=== PATIENT | female | born 1995 | race Caucasian/White ===

== ENCOUNTER 2022-07-21 15:30 | Inpatient (IN) | payer OTHER, SELFPAY ==
[2022-07-21 15:31] VITALS: BP 141/99; PULSE 65; RESP 15; TEMP 36.4; O2SAT 99; BMI 28.6
[2022-07-21 15:44] VITALS: BP 141/99; PULSE 65; RESP 15; TEMP 36.4; O2SAT 99
--- NOTE | 2022-07-21 15:49 | CT_ITS ---
INDICATION: Abdominal pain post cholecystectomy EXAMINATION: CT ABDOMEN AND PELVIS WITH CONTRAST - CT Abdomen And Pelvis W/ Contrast Injection TECHNIQUE: Helically acquired images were obtained of the abdomen and pelvis following IV contrast. A radiation dose optimization technique was used for this scan. IV Contrast dosage and agent: 100 cc [id number] Oral contrast: None. COMPARISON: None. FINDINGS: LOWER CHEST: Lung bases are clear. No cardiomegaly or pericardial effusion. LIVER: Homogeneous. No focal mass. GALLBLADDER AND BILIARY TREE: Gallbladder absent. Small amount of radiodense material in the gallbladder fossa. No intra- or extrahepatic biliary ductal dilation. PANCREAS: No focal cystic or solid mass. SPLEEN: Normal size without focal cystic or solid mass. ADRENAL GLANDS: No nodules. KIDNEYS AND URETERS: Normal renal size and position. No hydronephrosis. PERITONEUM: No ascites or free air. BOWEL: Normal appendix. No stomach or bowel distension. No focal inflammatory change. LYMPH NODES: No enlarged mesenteric or retroperitoneal lymph nodes. VESSELS: Aorta is non-dilated. URINARY BLADDER: Unremarkable. REPRODUCTIVE ORGANS: No pelvic masses. ABDOMINAL WALL: Ventral abdominal wall changes consistent with recent laparoscopy ports. No abnormal fluid collections. BONES: Unremarkable. CT/Abdomen/Pelvis W IV Cont ONLY IMPRESSION: Status post cholecystectomy with small amount of radiodense material in the gallbladder fossa, possible surgical material. Correlation with operative report is recommended. Calculi or hemorrhagic products could also have this appearance. Electronically Signed: Ayan Bermeo MD at 17:08 EST ,
--- NOTE | 2022-07-21 15:50 | ED.VIS.GI ---
HPI HPI - GI History of Present Illness Chief Complaint: Abd Pain Detail of Chief Complaint: Patient with recurrent right upper quadrant abdominal pain after cholecyste Informant: patient and spouse/S.O. Abdominal Pain/Flank Pain Onset: Weeks Context: Gradual Onset Timing: Intermittent Quality: Aching Location: RUQ Current Severity: Mild Maximum Severity: Mild Worsened by: Nothing Relieved by: Nothing Nausea/Vomiting/Emesis GI Symptom: Positive for Nausea; Negative for Vomiting Onset: Days Severity: Mild Diarrhea/Melena/Hematochezia GI Symptom: Negative for Diarrhea, Melena or Hematochezia Associated Symptoms Associated Symptoms: Negative for Dysuria, Frequency or Hematuria Narrative Narrative: 27-year-old female no seen past medical history. 2.5 weeks ago had laparoscopic cholecystectomy done at [facility] by Dr. Fajardo. States since the surgery she has had recurrent right upper quadrant pain. They did a HIDA scan and felt she might have a retained stone in the common bile duct. But then her pain got better so they thought the stone resolved but now she is having recurrent pain again. Associated nausea no vomiting. Her surgeon at that facility told her he could do nothing about a retained stone if that is what she had to come to our hospital. Prior similar symptoms: Yes Recent Illness/Hospitalization: No PFSH PFSH Medical History delivery delivered no medical history Home Medications hydrocodone-acetaminophen 5-325mg 5mg-325mg 1 tab PO Q6H PRN PRN Pain 07/21/22 [History Last Taken Unknown] Allergy/AdvReac Type Severity Reaction Status Date / Time No Known Allergies Allergy Verified 07/21/22 15:31 Surgical History History of cholecystectomy Social History Smoking Status: Never smoker ROS ROS ED ROS Narrative Right upper quadrant abdominal pain. Nausea. Review of Systems ROS Unobtainable: Denies due to encephalopathy Constitutional Constitutional ED: Denies chills or fever(s) ENT ENT ED: Denies ear pain Cardiovascular Cardiovascular: Denies chest pain Respiratory/Chest Respiratory/Chest: Denies cough Gastrointestinal Gastrointestinal: Reports abdominal pain and nausea; Denies constipation, diarrhea, melena or vomiting Genitourinary Genitourinary ED: Denies dysuria or hematuria Musculoskeletal Musculoskeletal: Denies arthralgias Integumentary Denies abscess Neurologic Neurologic: Denies headache(s) Psychiatric Psychiatric: Denies anxiety Endocrine Endocrinology: Denies polydipsia Hematologic/Lymphatic Hematologic/Lymphatic: Denies easy bleeding Allergic/Immunologic Allergic/Immunologic ED: Denies mouth swelling EXAM Physical Exam Narrative Exam Narrative: 18-year-old female no acute distress vital signs stable afebrile. H EENT exam unremarkable. Lungs clear equal symmetrical. Heart regular rate and rhythm rate about 65 no murmur. Abdomen soft nondistended normal bowel sounds no peritoneal signs. Mild right upper quadrant tenderness. No obstruction. Back nontender. Moving all 4 extremities. No edema. Neurologically she is awake and alert. Const Vital Signs: 07/21/22 15:31 07/21/22 15:44 Temperature 97.6 F L 97.6 F L Temperature Source Temporal Temporal Pulse Rate 65 65 Respiratory Rate 15 15 Blood Pressure 141/99 H 141/99 H Blood Pressure Mean 113 113 Pulse Ox 99 99 Oxygen Delivery Method Room Air Room Air Positive well nourished and well developed; Negative for obese, cachectic, contractures or unkempt General Appearance ED: well developed and NAD; Negative for unkempt, cachectic, contractures or pallor Nutritional Appearance: Negative for cachectic or obese HEENT Reports moist mucous membranes normocephalic and atraumatic; Negative for trauma or tenderness Eyes PERRL and EOMs intact bilaterally General Eye ED: Negative for pale conjunctiva or scleral icterus Neck no lymphadenopathy, supple and no JVD General: Negative for tenderness Carotids: Negative for other Lymph Lymphatic: Negative for other Resp normal respiratory effort and clear to auscultation bilaterally Effort and Inspection: Negative for respiratory distress Auscultation: Negative for rales, rhonchi or wheezes Cardio regular rate, regular rhythm, S1 normal heart sound, S2 normal heart sound and no murmurs Rate: Negative for bradycardia or tachycardic Rhythm: Negative for abnormal rhythm GI non-distended and no masses; Negative for non-tender GI Narrative: Mild right upper quadrant tenderness. Prior cholecystectomy incisions are dry and clean. Inspection: Negative for abdominal distention Auscultation: normoactive bowel sounds Palpation: soft, tender and rebound tenderness present; Negative for guarding, rigid, hepatomegaly, splenomegaly, hernia, mass or pulsatile mass Back/Spine no CVA tenderness General Back: Negative for CVA tenderness Cervical Spine: Negative for cervical spine tenderness Thoracic Spine / Upper Back: Negative for thoracic spinal tenderness Lumbar Spine / Lower Back: Negative for lumbar spinal tenderness Coccyx: Negative for other Extremity full ROM General Extremety ED: Negative for edema or tenderness General Extremity: Negative for edema Neuro CN's II-XII intact bilaterally and moves all extremities Sensorium / Orientation: alert, oriented to person, oriented to place and oriented to time; Negative for orientation impaired, confused, lethargic or stuporous Motor Exam: strength 5/5 throughout Psych mental status grossly normal and thought process normal Appearance: Negative for unkempt Attitude: No agitated Mood & Affect: Negative for depressed, anxious or tearful Skin General Skin Exam: Negative for jaundice or pallor Lesions: no lesions Rashes: no rashes Trauma: Negative for abrasion Nails: Negative for discolored MDM MDM MDM Narrative Medical decision making narrative: 27-year-old female with postcholecystectomy abdominal pain. Retained stone versus other etiologies. CAT scan and labs are pending. I will try to speak to her surgeon for [place] and get her HIDA scan results. She will be treated with morphine, Toradol and Zofran for pain. Spoke to the patient's general surgeon Dr. Nathan Fajardo in [place]. We were considering discharge. After my conversation with him she had recurrent pain and required more morphine. Therefore I spoke to GI on-call here. Patient will be admitted to the hospitalist. An MRCP. To determine if she has a retained stone or not if so then she may need an ERCP but that is to be determined. Ultrasound is also pending. Lab Data Attestation: I reviewed the patient's lab results. Lab results narrative: CBC White count of 6 H&H 12.38. Electrolytes unremarkable gap of 7 normal BUN and creatinine. Liver enzymes showed ALT 196 alk phos of 141. Lipase at 90. Labs: Laboratory Results - last 24 hr 07/21/22 07/21/22 15:46 15:46 WBC 6.0 RBC 4.57 Hgb 12.8 Hct 38.8 MCV 84.9 MCH 28.0 MCHC 33.0 RDW Std Deviation 42.9 RDW Coeff of Colt 14.0 Plt Count 346 MPV 9.0 Immature Gran % (Auto) 0.300 Neut % (Auto) 72.3 H Lymph % (Auto) 21.1 [place] % (Auto) 4.8 Eos % (Auto) 1.0 Baso % (Auto) 0.5 Absolute Neuts (auto) 4.3 Absolute Lymphs (auto) 1.26 Nucleated RBC % 0 Sodium 139 Potassium 3.5 Chloride 104 Carbon Dioxide 28.0 Anion Gap 7 BUN 8 Creatinine 0.59 Estim Creat Clear Calc 126.60 Est GFR (MDRD) Af Amer 154 Est GFR (MDRD) Non-Af 127 BUN/Creatinine Ratio 13.5 Glucose 90 Calcium 9.4 Total Bilirubin 0.80 AST 34 ALT 196 H Alkaline Phosphatase 141 H Total Protein 7.8 Albumin 4.1 Globulin 3.7 Albumin/Globulin Ratio 1.1 Lipase 90 Radiography Diagnostic Testing: Clinical Impression(s) from Imaging Studies Abdomen/Pelvis CT 07/21/22 15:49 IMPRESSION: Status post cholecystectomy with small amount of radiodense material in the gallbladder fossa, possible surgical material. Correlation with operative report is recommended. Calculi or hemorrhagic products could also have this appearance. Electronically Signed: Ayan Bermeo MD at 17:08 EST Reading Location ID and State: [facility] / [place] Tel , Service support , Discharge Plan Triage Chief Complaint: Abd Pain ED Provider: Jordon Donaldson Dx/Rx/DC Orders Clinical Impression: Abdominal pain, History of cholecystectomy Prescriptions: No Action hydrocodone-acetaminophen [[place]] 5-325 mg Tablet 1 tab PO Q6H PRN PRN (Reason: Pain) Primary Care Provider: Miguel Fajardo Referrals: Miguel Fajardo MD [Primary Care Provider] - Disposition Disposition: Acute Care Hospital [facility]
[2022-07-21] MEDS: Ketorolac 30 MG/ML Syringe IV (15:58)
[2022-07-21] MEDS: Morphine 4 MG/ML Syringe 6 MG IV (15:58)
[2022-07-21] MEDS: Ondansetron 4 MG/2 ML Vial IV (15:58)
[2022-07-21 16:01] LABS: Absolute Lymphocyte Count 1.26 X10^3/uL (0.83-4.51); Absolute Neutrophil Count 4.3 X10^3/uL (2.0-7.7); Basophil# 0.03 X10^3/uL; Basophil% 0.5 % (0-1); Eosinophil# 0.06 X10^3/uL; Hematocrit 38.8 % (37-47); Hemoglobin 12.8 g/dL (12.0-15.0); Lymphocyte # 1.26 X10^3/ul (0.83-4.51); Lymphocyte % 21.1 % (19-41); Mean Corpuscular Volume 84.9 fL (81-99); Monocyte# 0.29 X10^3/uL; Monocyte% 4.8 % (0-10); NRBC Flagged by Analyzer 0 % (0-5); Neutrophil # 4.32 X10^3/uL (2.7-7.7); Neutrophil % 72.3 % (47-70); Platelet Count 346 K/mm3 (150-450); RBC Distribution Width SD 42.9 fl (35.1-43.9); Red Blood Count 4.57 M/mm3 (4.2-5.4)
[2022-07-21 16:17] LABS: ALB/GLOB Ratio 1.1 RATIO (0.9-2.4); AST(SGOT) 34 U/L (15-37); Alanine Aminotransfer ALT/SGPT 196 U/L (13-56); Albumin, Serum 4.1 g/dL (3.2-5.0); Alkaline Phosphatase 141 U/L (45-117); Anion Gap 7 (5-15); BUN 8 mg/dL (7-18); BUN/Creat Ratio 13.5 RATIO (10-20); Calcium,Total 9.4 mg/dL (8.5-10.1); Chloride 104 mmol/L (98-107); Creatinine, Serum 0.59 mg/dL (0.55-1.02); EST Glomerular Filtration Rate 127 mL/min (>60); Est Glom Filt Rate - Afr Amer 154 mL/min (>60); Globulin 3.7 g/dL (2.2-4.2); Glucose 90 mg/dL (74-106); Lipase 90 U/L (73-393); Potassium 3.5 mmol/L (3.5-5.1); Protein, Total 7.8 g/dL (6.4-8.2); Sodium Level 139 mmol/L (136-145)
--- NOTE | 2022-07-21 18:39 | US_ITS ---
PROCEDURE: ABDOMINAL ULTRASOUND, RIGHT UPPER QUADRANT COMPARISONS: CT abdomen and pelvis earlier same date.. CLINICAL INDICATION: Pain status post cholecystectomy TECHNIQUE: Real-time arroyo-scale abdominal ultrasound. Limited color Doppler evaluation is performed. FINDINGS: Liver: Normal in size and echogenicity. Appropriate hepatopetal flow is present in the main portal vein. Gallbladder: Gallbladder surgically absent. Echogenic foci in the gallbladder fossae and measure approximately 5 mm with scattered shadowing noted. Sonographic Bolanos''s sign reported positive. Biliary Tree: Nondilated. Common bile duct measures 6 mm. Pancreas: Limited evaluation of the head and body is unremarkable. Right kidney: Normal in size and echogenicity. No hydronephrosis or stones. The right kidney measures 11.3 cm in long axis. No free fluid. US/Gallbladder IMPRESSION: Shadowing echogenic foci in the gallbladder fossa, calculi versus surgical material. Correlate with operative report for surgical material utilized. No biliary obstruction. Electronically Signed: Ayan Bermeo MD at 19:53 EST ,
[2022-07-21] MEDS: Morphine 4 MG/ML Syringe IV (18:49)
[2022-07-21 19:31] VITALS: BP 138/78; PULSE 73; RESP 16; TEMP 36.6; O2SAT 98
--- NOTE | 2022-07-21 19:56 | HP.PCM.HOS_ITS ---
HPI - General General Date of Admission: 07/21/22 Date of Service: 07/21/22 Chief Complaint: Right upper quadrant pain HPI Narrative YOHANA MORALES, is a 27 F with a past history of laparoscopic cholecystectomy 2.5 weeks ago at [place] by Dr. Morales who presented to [facility] 07/21/2022 with recurrent right upper quadrant pain. She been having right upper quadrant pain which is why cholecystectomy was performed, she r eports that inflammation was found during her cholecystectomy and she is on antibiotics for 4 days. Since then she has had pain that waxes and wanes. At 1 point she did have a HIDA scan which questioned retained stone but she clinically improved significantly so no further imaging or intervention was performed. Since Monday however she has had worsened right upper quadrant pain with some nausea and poor p.o. intake. Denies any fever, has had slight constipation. No emesis. Her surgeon recommended she come to the ER for further evaluation. In the ED white blood cell count within normal limits, slight elevation of ALT and ALP. CT abdomen/pelvis shows small amount of radiodense material in the gallbladder fossa and is nonspecific. Right upper quadrant ultrasound also nonspecific but did not demonstrate overt obstruction. GI contacted by ED physician who recommended admission and MRCP. Hospitalist contacted for admission. On evaluation she reports pain is somewhat improved with pain medication but continues to have the sharp frequent right upper quadrant pain and mild nausea with no vomiting. Denies any other physical complaints. [facility] Medical History delivery delivered Home Medications hydrocodone-acetaminophen 5-325mg 5mg-325mg 1 tab PO Q6H PRN PRN Pain 07/21/22 [History Last Taken Unknown] Allergy/AdvReac Type Severity Reaction Status Date / Time No Known Allergies Allergy Verified 07/21/22 15:31 Surgical History History of cholecystectomy Social History Smoking Status: Never smoker ROS Constitutional Constitutional: Denies change in weight, chills or fever(s) Eyes Eyes: Denies change in vision ENT HEENT: Denies headache(s), nasal congestion or sore throat Cardiovascular Cardiovascular: Denies chest pain or palpitations Respiratory/Chest Respiratory/Chest: Denies cough or productive cough Gastrointestinal Gastrointestinal: Reports other Details: Mild to moderate right upper quadrant abdominal pain that is often sharp in nature, slight constipation Genitourinary Genitourinary: Reports other Details: denies changes in urination Musculoskeletal Musculoskeletal: Denies joint pain Neurologic Neurologic: Denies dizziness, focal weakness, headache(s), numbness or tingling Psychiatric Psychiatric: Denies anxiety Hematologic/Lymphatic Hematologic/Lymphatic: Denies easy bleeding Allergic/Immunologic Allergic/Immunologic: Reports other Details: denies rashes Vital Signs Vital Signs Vital Signs: 07/21/22 15:31 07/21/22 15:44 Temperature 97.6 F L 97.6 F L Temperature Source Temporal Temporal Pulse Rate 65 65 Respiratory Rate 15 15 Blood Pressure 141/99 H 141/99 H Blood Pressure Mean 113 113 Pulse Ox 99 99 Oxygen Delivery Method Room Air Room Air Weight Weight: 78.018 kg Body Mass Index (BMI) 28.6 Physical Exam Const alert and no apparent distress Constitutional Narrative: Oriented HEENT normocephalic and head/scalp atraumatic Eyes Eyes Narrative: EOM grossly intact, anicteric Neck supple Resp normal respiratory effort and clear to auscultation bilaterally Cardio regular rate and regular rhythm GI soft to palpation and non-distended GI Narrative: Very mild tender to palpation in right upper quadrant, no rebound, no guarding, no rigidity Extremity Extremity Narrative: No edema appreciated Neuro moves all extremities Neuro Narrative: No overt focal deficits appreciated Psych Psych Narrative: Cooperative Results Lab / Micro Data Result Diagrams: 07/21/22 15:46 07/21/22 15:46 Labs: Laboratory Results - last 24 hr 07/21/22 15:46: WBC 6.0, RBC 4.57, Hgb 12.8, Hct 38.8, MCV 84.9, MCH 28.0, MCHC 33.0, RDW Std Deviation 42.9, RDW Coeff of Colt 14.0, Plt Count 346, MPV 9.0, Immature Gran % (Auto) 0.300, Neut % (Auto) 72.3 H, Lymph % (Auto) 21.1, [place] % (Auto) 4.8, Eos % (Auto) 1.0, Baso % (Auto) 0.5, Absolute Neuts (auto) 4.3, Absolute Lymphs (auto) 1.26, Nucleated RBC % 0 07/21/22 15:46: Sodium 139, Potassium 3.5, Chloride 104, Carbon Dioxide 28.0, Anion Gap 7, BUN 8, Creatinine 0.59, Estim Creat Clear Calc 126.60, Est GFR (MDRD) Af Amer 154, Est GFR (MDRD) Non-Af 127, BUN/Creatinine Ratio 13.5, Glucose 90, Calcium 9.4, Total Bilirubin 0.80, AST 34, ALT 196 H, Alkaline Phosphatase 141 H, Total Protein 7.8, Albumin 4.1, Globulin 3.7, Albumin/Globulin Ratio 1.1, Lipase 90 Radiology Impression Abdomen/Pelvis CT 07/21/22 15:49 IMPRESSION: Status post cholecystectomy with small amount of radiodense material in the gallbladder fossa, possible surgical material. Correlation with operative report is recommended. Calculi or hemorrhagic products could also have this appearance. Electronically Signed: Ayan Bermeo MD at 17:08 EST Reading Location ID and State: [facility] / [place] Tel , Service support , Gallbladder Ultrasound 07/21/22 18:39 IMPRESSION: Shadowing echogenic foci in the gallbladder fossa, calculi versus surgical material. Correlate with operative report for surgical material utilized. No biliary obstruction. Electronically Signed: Ayan Bermeo MD at 19:53 EST Reading Location ID and State: [facility] / [place] Tel , Service support , Assessment & Plan Assessment/Plan (1) Abdominal pain: PLAN: Plan #Right upper quadrant pain Concern for retained stone CT and ultrasound nonspecific, MRCP ordered GI consulted Pain control, Zofran, gentle hydration overnight given poor p.o. intake over the past couple weeks No signs or symptoms of infection so we will not begin antibiotics at this time #Elevated ALT and alk phos MRCP ordered Trend CMP #DVT ppx: Low risk, ambulatory Patience Sinha MD Charges/Coding Visit Charges OBSV E&M: 34686 Initial observation care L2
[2022-07-21 20:20] VITALS: BMI 29.0
[2022-07-21 20:45] VITALS: BP 115/69; PULSE 61; RESP 16; TEMP 36.7; O2SAT 99
[2022-07-21] MEDS: oxyCODONE 5 MG Tablet PO (20:51)
[2022-07-21] MEDS: 0.9% Normal Saline 1,000 ML 75 ML IV (20:53)
[2022-07-22] MEDS: oxyCODONE 5 MG Tablet PO ×4 (03:53→23:12)
[2022-07-22 06:06] LABS: Absolute Lymphocyte Count 1.34 X10^3/uL (0.83-4.51); Absolute Neutrophil Count 2.4 X10^3/uL (2.0-7.7); Basophil# 0.02 X10^3/uL; Basophil% 0.5 % (0-1); Eosinophil# 0.11 X10^3/uL; Eosinophils% 2.6 % (0-5); Hemoglobin 11.9 g/dL (12.0-15.0); Lymphocyte # 1.34 X10^3/ul (0.83-4.51); Lymphocyte % 32.2 % (19-41); Mean Corp Hgb Conc 32.2 g/dL (32-36); Mean Corpuscular Hgb 28.3 pg (27.0-32.0); Mean Corpuscular Volume 87.9 fL (81-99); Mean Platelet Vol. 9.2 fl (6.2-12.0); Monocyte# 0.27 X10^3/uL; Monocyte% 6.5 % (0-10); NRBC Flagged by Analyzer 0 % (0-5); Neutrophil % 57.7 % (47-70); Platelet Count 288 K/mm3 (150-450); RBC Distribution Width SD 44.3 fl (35.1-43.9); Red Blood Count 4.21 M/mm3 (4.2-5.4); White Blood Count 4.2 K/mm3 (4.4-11.0)
[2022-07-22 06:39] LABS: AST(SGOT) 26 U/L (15-37); Alanine Aminotransfer ALT/SGPT 153 U/L (13-56); Albumin, Serum 3.3 g/dL (3.2-5.0); Alkaline Phosphatase 120 U/L (45-117); Anion Gap 7 (5-15); BUN 10 mg/dL (7-18); BUN/Creat Ratio 19.8 RATIO (10-20); Calcium,Total 8.7 mg/dL (8.5-10.1); Chloride 108 mmol/L (98-107); Creatinine, Serum 0.51 mg/dL (0.55-1.02); EST Glomerular Filtration Rate 153 mL/min (>60); Est Glom Filt Rate - Afr Amer 185 mL/min (>60); Estimated Creatinine Clearance 146.46 ml/min; Globulin 3.4 g/dL (2.2-4.2); Glucose 62 mg/dL (74-106); Potassium 3.5 mmol/L (3.5-5.1); Protein, Total 6.7 g/dL (6.4-8.2); Sodium Level 139 mmol/L (136-145)
--- NOTE | 2022-07-22 07:06 | PCM.PN.HOSP ---
Subjective Subjective Follow-up for right upper quadrant abdominal pain after cholecystectomy. Objective Data Objective Data Vital Signs: Vital Signs Temp Pulse Resp BP Pulse Ox O2 Del Method 98.1 F 61 16 115/69 99 Room Air 07/21/22 20:45 07/21/22 20:45 07/21/22 20:45 07/21/22 20:45 07/21/22 20:45 07/21/22 20:45 Oxygen Delivery Method Room Air Weight: 174 lb 9.698 oz Body Mass Index (BMI) 29.0 Lab / Micro Data Result Diagrams: 07/22/22 05:11 07/22/22 05:11 Labs: Laboratory Results - last 24 hr 07/21/22 15:46: WBC 6.0, RBC 4.57, Hgb 12.8, Hct 38.8, MCV 84.9, MCH 28.0, MCHC 33.0, RDW Std Deviation 42.9, RDW Coeff of Colt 14.0, Plt Count 346, MPV 9.0, Immature Gran % (Auto) 0.300, Neut % (Auto) 72.3 H, Lymph % (Auto) 21.1, [place] % (Auto) 4.8, Eos % (Auto) 1.0, Baso % (Auto) 0.5, Absolute Neuts (auto) 4.3, Absolute Lymphs (auto) 1.26, Nucleated RBC % 0 07/21/22 15:46: Sodium 139, Potassium 3.5, Chloride 104, Carbon Dioxide 28.0, Anion Gap 7, BUN 8, Creatinine 0.59, Estim Creat Clear Calc 126.60, Est GFR (MDRD) Af Amer 154, Est GFR (MDRD) Non-Af 127, BUN/Creatinine Ratio 13.5, Glucose 90, Calcium 9.4, Total Bilirubin 0.80, AST 34, ALT 196 H, Alkaline Phosphatase 141 H, Total Protein 7.8, Albumin 4.1, Globulin 3.7, Albumin/Globulin Ratio 1.1, Lipase 90 07/22/22 05:11: WBC 4.2 L, RBC 4.21, Hgb 11.9 L, Hct 37.0, MCV 87.9, MCH 28.3, MCHC 32.2, RDW Std Deviation 44.3 H, RDW Coeff of Colt 14.0, Plt Count 288, MPV 9.2, Immature Gran % (Auto) 0.500, Neut % (Auto) 57.7, Lymph % (Auto) 32.2, [place] % (Auto) 6.5, Eos % (Auto) 2.6, Baso % (Auto) 0.5, Absolute Neuts (auto) 2.4, Absolute Lymphs (auto) 1.34, Nucleated RBC % 0 07/22/22 05:11: Sodium 139, Potassium 3.5, Chloride 108 H, Carbon Dioxide 24.0, Anion Gap 7, BUN 10, Creatinine 0.51 L, Estim Creat Clear Calc 146.46, Est GFR (MDRD) Af Amer 185, Est GFR (MDRD) Non-Af 153, BUN/Creatinine Ratio 19.8, Glucose 62 L, Calcium 8.7, Total Bilirubin 0.80, AST 26, ALT 153 H, Alkaline Phosphatase 120 H, Total Protein 6.7, Albumin 3.3, Globulin 3.4, Albumin/Globulin Ratio 1.0 Radiography Diagnostic Testing: Radiology Impression Abdomen/Pelvis CT 07/21/22 15:49 IMPRESSION: Status post cholecystectomy with small amount of radiodense material in the gallbladder fossa, possible surgical material. Correlation with operative report is recommended. Calculi or hemorrhagic products could also have this appearance. Electronically Signed: Ayan Bermeo MD at 17:08 EST , Gallbladder Ultrasound 07/21/22 18:39 IMPRESSION: Shadowing echogenic foci in the gallbladder fossa, calculi versus surgical material. Correlate with operative report for surgical material utilized. No biliary obstruction. Electronically Signed: Ayan Bermeo MD at 19:53 EST , Physical Exam Narrative Seen and examined. Patient is still has intermittent right upper quadrant pain. She is 3 months . Physical exam General: Alert, Oriented x3, Cooperative HEENT: Atraumatic, PERRLA, EOMI, Normocephalic Oral: No Gingival or Mucosal Lesions/ Ulcerations Neck: Supple, No JVD, Negative Carotid Bruits Lungs: Air entry equal in bilateral lung bases. No crepitation/rhonchi Cardiovascular: Regular rate, Regular Rhythm, Normal S1, Normal S2, No murmurs Abdomen: Mild tenderness over right subcostal margin. No guarding/rigidity. No mass palpable. Nondistended. Bowel sounds present. : No renal angle tenderness. No suprapubic tenderness. Extremities: No edema, Capillary Refill Less than 3 Seconds Skin: No rashes, No breakdown Musculoskeletal: No Tenderness to Palpation of Joints or Extremities Neurological: Cranial nerves II-XII grossly intact, DTR 2+/4 and Symmetrical, Neuro grossly intact Psych/Mental Status: Normal Affect, Appropriate. Assessment & Plan Assessment/Plan (1) Abdominal pain: PLAN: Plan This is a 27-year-old female was admitted with recurrent right upper quadrant abdominal pain for about 2 and half weeks after she had laparoscopic cholecystectomy at [facility] by Dr. Fajardo. She had HIDA scan #Right upper quadrant pain: Patient had HIDA scan in [facility] and felt it might be a retained stone in CBD. But after that pain resolved for transient period, therefore was thought to have passed the stone. The pain came back associated with nausea but no vomiting.The patient had CT abdomen and right upper quadrant sonogram which raised the suspicion of calculi or hemorrhagic product. MRCP was ordered. Patient on pain control, antiemetic. On clinical lab and radiological assessment patient did not seem to be infected therefore antibiotic was not started yet.Patient does not have leukocytosis. Liver chemistry shows elevated ALT and alkaline phosphatase but normal AST. TB normal. GI consult reviewed. #DVT ppx: Low risk, ambulatory Charges/Coding Visit Charges Inpatient E&M: 55977 Subs Hosp L2
--- NOTE | 2022-07-22 08:14 | CON.PCM.GI_ITS ---
HPI Consult Data Date of Consult: 07/22/22 HPI Narrative Reason for Consultation: Right upper quadrant abdominal pain HPI Narrative: YOHANA MORALES, is a 27 F who presents in the right upper quadrant abdominal pain. She is 3 months . She has a past history of laparoscopic cholecystectomy 2.5 weeks ago at [place].? She been having right upper quadrant pain which is why cholecystectomy was performed. She reports that inflammation was found during her cholecystectomy and she is on antibiotics for 4 days.? Since then she has had pain that waxes and wanes.? At 1 point she did have a HIDA scan which questioned retained stone but she clinically improved significantly so no further imaging or intervention was performed.? Since Monday however she has had worsened right upper quadrant pain with some nausea and poor p.o. intake.? Denies any fever, has had slight constipation.? No emesis.? Her surgeon recommended she come to the ER for further evaluation.? In the ED white blood cell count within normal limits, slight elevation of ALT and ALP.? CT abdomen/pelvis shows small amount of radiodense material in the gallbladder fossa and is nonspecific.? Right upper quadrant ultrasound also nonspecific but did not demonstrate overt obstruction.? On evaluation she reports pain is somewhat improved with pain medication but continues to have the sharp frequent right upper quadrant pain and mild nausea with no vomiting.? Currently she rates her pain a 9 out of 10 without pain medicine and a 5 out of 10 with pain medicine. She is awaiting MRCP. [facility] Medical History delivery delivered Home Medications hydrocodone-acetaminophen 5-325mg 5mg-325mg 1 tab PO Q6H PRN PRN Pain 07/21/22 [History Last Taken Unknown] Allergy/AdvReac Type Severity Reaction Status Date / Time No Known Allergies Allergy Verified 07/21/22 15:31 Surgical History History of cholecystectomy Social History Smoking Status: Never smoker ROS Constitutional Constitutional: Denies change in weight, chills or fever(s) Eyes Eyes: Denies change in vision ENT HEENT: Denies headache(s), nasal congestion or sore throat Cardiovascular Cardiovascular: Denies chest pain or palpitations Respiratory/Chest Respiratory/Chest: Denies cough or productive cough Gastrointestinal Gastrointestinal: Reports other Details: Mild to moderate right upper quadrant abdominal pain that is often sharp in nature, slight constipation Genitourinary Genitourinary: Reports other Details: denies changes in urination Musculoskeletal Musculoskeletal: Denies joint pain Neurologic Neurologic: Denies dizziness, focal weakness, headache(s), numbness or tingling Psychiatric Psychiatric: Denies anxiety Hematologic/Lymphatic Hematologic/Lymphatic: Denies easy bleeding Allergic/Immunologic Allergic/Immunologic: Reports other Details: denies rashes Physical Exam Const alert and no apparent distress Constitutional Narrative: Oriented HEENT normocephalic and head/scalp atraumatic Eyes Eyes Narrative: EOM grossly intact, anicteric Neck supple Resp normal respiratory effort and clear to auscultation bilaterally Cardio regular rate and regular rhythm GI soft to palpation and non-distended GI Narrative: Very mild tender to palpation in right upper quadrant, no rebound, no guarding, no rigidity Extremity Extremity Narrative: No edema appreciated Neuro moves all extremities Neuro Narrative: No overt focal deficits appreciated Psych Psych Narrative: Cooperative Lab / Micro Data Result Diagrams: 07/22/22 05:11 07/22/22 05:11 Labs: Laboratory Results - last 24 hr 07/21/22 15:46: WBC 6.0, RBC 4.57, Hgb 12.8, Hct 38.8, MCV 84.9, MCH 28.0, MCHC 33.0, RDW Std Deviation 42.9, RDW Coeff of Colt 14.0, Plt Count 346, MPV 9.0, Immature Gran % (Auto) 0.300, Neut % (Auto) 72.3 H, Lymph % (Auto) 21.1, Greenlee % (Auto) 4.8, Eos % (Auto) 1.0, Baso % (Auto) 0.5, Absolute Neuts (auto) 4.3, Abso lute Lymphs (auto) 1.26, Nucleated RBC % 0 07/21/22 15:46: Sodium 139, Potassium 3.5, Chloride 104, Carbon Dioxide 28.0, Anion Gap 7, BUN 8, Creatinine 0.59, Estim Creat Clear Calc 126.60, Est GFR (MDRD) Af Amer 154, Est GFR (MDRD) Non-Af 127, BUN/Creatinine Ratio 13.5, Glucos e 90, Calcium 9.4, Total Bilirubin 0.80, AST 34, ALT 196 H, Alkaline Phosphatase 141 H, Total Protein 7.8, Albumin 4.1, Globulin 3.7, Albumin/Globulin Ratio 1.1, Lipase 90 07/22/22 05:11: WBC 4.2 L, RBC 4.21, Hgb 11.9 L, Hct 37.0, MCV 87.9, MCH 28.3, MCHC 32.2, RDW Std Deviation 44.3 H, RDW Coeff of Colt 14.0, Plt Count 288, MPV 9.2, Immature Gran % (Auto) 0.500, Neut % (Auto) 57.7, Lymph % (Auto) 32.2, Greenlee % (Auto) 6.5, Eos % (Auto) 2.6, Baso % (Auto) 0.5, Absolute Neuts (auto) 2.4, Absolute Lymphs (auto) 1.34, Nucleated RBC % 0 07/22/22 05:11: Sodium 139, Potassium 3.5, Chloride 108 H, Carbon Dioxide 24.0, Anion Gap 7, BUN 10, Creatinine 0.51 L, Estim Creat Clear Calc 146.46, Est GFR (MDRD) Af Amer 185, Est GFR (MDRD) Non-Af 153, BUN/Creatinine Ratio 19.8, Glucose 62 L, Calcium 8.7, Total Bilirubin 0.80, AST 26, ALT 153 H, Alkaline Phosphatase 120 H, Total Protein 6.7, Albumin 3.3, Globulin 3.4, Albumin/Globu ren Ratio 1.0 Radiology Impression Abdomen/Pelvis CT 07/21/22 15:49 IMPRESSION: Status post cholecystectomy with small amount of radiodense material in the gallbladder fossa, possible surgical material. Correlation with operative report is recommended. Calculi or hemorrhagic products could also have this appearance. Electronically Signed: Ayan Bermeo MD at 17:08 EST Reading Location ID and State: [facility] / [place] Tel , Service support , Gallbladder Ultrasound 07/21/22 18:39 IMPRESSION: Shadowing echogenic foci in the gallbladder fossa, calculi versus surgical material. Correlate with operative report for surgical material utilized. No biliary obstruction. Electronically Signed: Ayan Bermeo MD at 19:53 EST , Assessment & Plan Assessment/Plan (1) Abdominal pain: PLAN: Her LFTs are decreasing despite her having abdominal pain that was similar to her prior to getting her gallbladder out. Outside HIDA scan as per the patient, displayed no technetium going into the small bowel at an extended period of time of 2 hours. Her imaging at our institution does not show any signs of obstruction but it does show material in the gallbladder fossa. We will await the MRCP to see if there is any signs of bile leak, retained stone or any other pathology that may or may not be associated with recent cholecystectomy. Charges/Coding Visit Charges Inpatient E&M: 04436 Init Hosp L3
[2022-07-22 08:37] VITALS: BP 116/61; PULSE 76; RESP 16; TEMP 36.9; O2SAT 98
[2022-07-22] MEDS: Lactated Ringers 1,000 ML 100 ML IV ×2 (09:45→20:11)
[2022-07-22] MEDS: LORazepam 1 MG Tablet PO (09:45)
--- NOTE | 2022-07-22 09:52 | CASEMGMT ---
ADRIENNE PAYTON Assessment: Face to Face with pt for initial transition planning/care coordination assessment. RN FITO introduced self and role at [facility], pt voices understanding and consents to assessment. Pt is A/O x4 and answers all questions appropriately at this time. Pt sitting up in bed with at bedside. Care providers, pharmacy, and demographics verified/updated. Admitting Dx: RUQ pain PCP:Miguel Fajarod Specialists:Nathan Fajardo, OR; Anabela Fajardo, ENGRAVER [employer]PRENTICE DECORATIVE Preferred Pharmacy: [facility] Retail Insurance: bSafe Prescription Benefit: no LNOK: Kaushal Fajardo, Living Arrangements: Pt lives with and 2 children in a two story house with a few steps to enter. Pt reports she is I in ADL's and denies concerns at home. Transportation: Pt hires drivers for transportation. DME/HHC/SNF: Pt denies having any DME, previous HHC or SNF stays. Pt states no concerns with going home at time of dc. Pt states no further concerns/needs. CM to follow. Advised pt to ask CM if any further question/concerns/needs arise, voices understanding. Pt Goal: Home Plan: Home
--- NOTE | 2022-07-22 10:00 | MRI_ITS ---
Examination: Abdominal MRI and MRCP. INDICATION: Right upper quadrant pain. Concern for retained stone. Cholecystectomy 2.5 weeks ago. TECHNIQUE: Multiplanar multisequence MRI of the abdomen was obtained. MRCP 3-D postprocessing was obtained. COMPARISON: Ultrasound and CT dated July 21, 2022 FINDINGS: There is no focal consolidation within the visualized lung bases. There is intra and extrahepatic ductal dilatation. The common bile duct measures up to 9 mm. No intraluminal filling defects are visualized. The gallbladder is surgically absent. Within the gallbladder fossa there is fluid associated with T1 and T2 hypointense rounded foci measuring up to 13.9 mm. The pancreas and spleen are within normal limits. The adrenal glands and kidneys are grossly unremarkable. There are postsurgical changes within the anterior abdominal wall right of midline. The visualized stomach, small bowel and colon are within normal limits. The appendix is visualized and is normal. No suspicious bony lesions are seen. MRI/MRCP Abdomen without Contrast IMPRESSION: Status post cholecystectomy with fluid and findings concerning for retained gallstones within the gallbladder fossa. Intra and extrahepatic ductal dilatation. Electronically Signed: Shy Arteaga MD at 12:15 EST ,
[2022-07-22 10:16] VITALS: BP 128/66; PULSE 93; RESP 16; O2SAT 98
[2022-07-22 10:27] VITALS: BP 109/40; PULSE 67; RESP 16; O2SAT 98
[2022-07-22 10:37] VITALS: BP 109/43; PULSE 61; RESP 18; O2SAT 97
[2022-07-22 15:31] VITALS: BP 131/75; PULSE 78; RESP 16; TEMP 36.9; O2SAT 98
[2022-07-22 21:54] VITALS: BP 112/63; PULSE 68; RESP 18; TEMP 36.4; O2SAT 96
[2022-07-23 03:24] VITALS: BP 120/74; PULSE 77; RESP 16; TEMP 36.7; O2SAT 97
[2022-07-23] MEDS: Lactated Ringers 1,000 ML 100 ML IV (06:40)
[2022-07-23] MEDS: oxyCODONE 5 MG Tablet PO (07:40)
--- NOTE | 2022-07-23 07:45 | PCM.PN.HOSP ---
Objective Data Objective Data Vital Signs: Vital Signs Temp Pulse Resp BP Pulse Ox O2 Del Method 98.0 F 77 16 120/74 97 Room Air 07/23/22 03:24 07/23/22 03:24 07/23/22 03:24 07/23/22 03:24 07/23/22 03:24 07/23/22 03:24 Oxygen Delivery Method Room Air Weight: 174 lb 9.698 oz Body Mass Index (BMI) 29.0 Intake & Output: Intake and Output for Last 24 Hours 07/21/22 07/22/22 07/23/22 23:59 23:59 23:59 Intake Total 1965.25 / 2266.25 1300 / 1300 Balance 1965.25 / 2266.25 1300 / 1300 Lab / Micro Data Result Diagrams: 07/22/22 05:11 07/22/22 05:11 Radiography Diagnostic Testing: Radiology Impression MRCP 07/22/22 10:00 IMPRESSION: Status post cholecystectomy with fluid and findings concerning for retained gallstones within the gallbladder fossa. Intra and extrahepatic ductal dilatation. Electronically Signed: Shy Arteaga MD at 12:15 EST , Physical Exam Narrative Seen and examined. Patient is still has intermittent right upper quadrant pain. She is 3 months . Physical exam General: Alert, Oriented x3, Cooperative HEENT: Atraumatic, PERRLA, EOMI, Normocephalic Oral: No Gingival or Mucosal Lesions/ Ulcerations Neck: Supple, No JVD, Negative Carotid Bruits Lungs: Air entry equal in bilateral lung bases. No crepitation/rhonchi Cardiovascular: Regular rate, Regular Rhythm, Normal S1, Normal S2, No murmurs Abdomen: Mild tenderness over right subcostal margin. No guarding/rigidity. No mass palpable. Nondistended. Bowel sounds present. : No renal angle tenderness. No suprapubic tenderness. Extremities: No edema, Capillary Refill Less than 3 Seconds Skin: No rashes, No breakdown Musculoskeletal: No Tenderness to Palpation of Joints or Extremities Neurological: Cranial nerves II-XII grossly intact, DTR 2+/4 and Symmetrical, Neuro grossly intact Psych/Mental Status: Normal Affect, Appropriate. Assessment & Plan Assessment/Plan (1) Abdominal pain: PLAN: Plan This is a 27-year-old female was admitted with recurrent right upper quadrant abdominal pain for about 2 and half weeks after she had laparoscopic cholecystectomy at [facility] by Dr. Fajardo. She had HIDA scan #Right upper quadrant pain: Patient had HIDA scan in [facility] and felt it might be a retained stone in CBD. But after that pain resolved for transient period, therefore was thought to have passed the stone. The pain came back associated with nausea but no vomiting.The patient had CT abdomen and right upper quadrant sonogram which raised the suspicion of calculi or hemorrhagic product. MRCP was ordered. Patient on pain control, antiemetic. On clinical lab and radiological assessment patient did not seem to be infected therefore antibiotic was not started yet.Patient does not have leukocytosis. Liver chemistry shows elevated ALT and alkaline phosphatase but normal AST. TB normal. GI consult reviewed. 07/23: MRCP was done and shows retained gallstone within GB fossa measuring up to 13.9 mm. #DVT ppx: Low risk, ambulatory
--- NOTE | 2022-07-23 08:36 | EX.PCM.CON.S ---
Assessment & Plan Assessment/Plan (1) Abdominal pain: (2) History of cholecystectomy: PLAN: At this point I do not think were dealing with extraluminal gallstones. Having spoke with Dr. Nathan Morales there was no spillage of bile or stones during the procedure. Her history and the HIDA scan were suspicious for having a stone in the common bile duct that possibly have passed. And have spoken with Dr. Johnson and at the present time with her liver function test going down he would be more inclined to want to wait and observe as opposed to do an ERCP and possibly get for pancreatitis. At the present time she does not need to have a second exploratory laparoscopy in my opinion. HPI Consult Data Date of Consult: 07/23/22 HPI Narrative HPI Narrative: YOHANA MORALES, is a 27 F who presents right upper quadrant abdominal pain.? She is 3 months .? She has a past history of laparoscopic cholecystectomy 2.5 weeks ago at [place].? She been having right upper quadrant pain which is why cholecystectomy was performed.? She reports that inflammation was found during her cholecystectomy and she is on antibiotics for 4 days.? ?Since then she has had pain that waxes and wanes.? At 1 point she did have a HIDA scan which questioned retained stone but she clinically improved significantly so no further imaging or intervention was performed.? Since Monday however she has had worsened right upper quadrant pain with some nausea and poor p.o. intake.? Denies any fever, has had slight constipation.? No emesis.? ?Her surgeon recommended she come to the ER for further evaluation.? In the ED white blood cell count within normal limits, slight elevation of ALT and ALP.? CT abdomen/pelvis shows small amount of radiodense material in the gallbladder fossa and is nonspecific.? Right upper quadrant ultrasound also nonspecific but did not demonstrate overt obstruction.? MRCPMPRESSION: Status post cholecystectomy with fluid and findings concerning for retained gallstones within the gallbladder fossa. I spoke with Dr. Nathan Morales the surgeon in [place] and he stated that there was no spillage of bile or stones during the operation. When he saw the patient she was having right upper quadrant pain and a HIDA scan which did not go into the duodenum and he thought that she could have had a retained stone within her common bile duct. She got significantly better and he thought that the clinical picture was 1 that possibly showed that the stone had passed but when her pain return he wanted her to come up and be evaluated for a possible ERCP. [facility] Medical History delivery delivered Home Medications hydrocodone-acetaminophen 5-325mg 5mg-325mg 1 tab PO Q6H PRN PRN Pain 07/21/22 [History Last Taken Unknown] Allergy/AdvReac Type Severity Reaction Status Date / Time No Known Allergies Allergy Verified 07/21/22 15:31 Surgical History History of cholecystectomy Social History Smoking Status: Never smoker ROS Constitutional Constitutional: Denies anorexia, chills or fever(s) Cardiovascular Cardiovascular: Denies chest pain Respiratory/Chest Respiratory/Chest: Denies cough Gastrointestinal Gastrointestinal: Reports abdominal pain and constipation Genitourinary Genitourinary: Denies change in urinary stream Physical Exam Const alert, oriented x3 and no apparent distress HEENT normocephalic and head/scalp atraumatic Eyes PERRL and EOMs intact bilaterally Resp clear to auscultation bilaterally Cardio Rate: regular rate Rhythm: regular rhythm GI soft to palpation GI Narrative: Mild tenderness in the right upper quadrant. No rebound guarding or peritoneal signs are identified. Lab / Micro Data Result Diagrams: 07/22/22 05:11 07/22/22 05:11 Radiology Impression MRCP 07/22/22 10:00 IMPRESSION: Status post cholecystectomy with fluid and findings concerning for retained gallstones within the gallbladder fossa. Intra and extrahepatic ductal dilatation. Electronically Signed: Shy Arteaga MD at 12:15 [facility] ,
[2022-07-23 10:44] VITALS: BP 100/55; PULSE 60; RESP 17; TEMP 36.8; O2SAT 96
--- NOTE | 2022-07-23 11:10 | DCINST_ITS ---
Discharge Instructions Diet Discharge Diet: [place] diet, Soft diet (for next 5 days) and Low fat / Low cholesterol Activity Discharge Activity: Return to Normal Activity and May Not Drive Dressing / Incision Call your doctor if you observe: Fever of 101 or Higher, Coldness, Increased Pain, Numbness or Tingling, Change in Color, Inability to urinate, Inability to have a bowel movement, Shortness of breath, Dizziness, Fainting spells, Swelling in the ankles, Chest pain, Prolonged hiccupping, Increased palpitations (irregular heartbeat), Calf discomfort and Uncontrolled pain Follow Up Care Test Results: Test results from this visit will be discussed in further detail at your follow- up appointment, if applicable. Discharge Plan Admission Admit Date/Time: 07/21/22 19:37 Primary Reason for Your Visit: RUQ pain Attending Provider: Biju Go Primary Care Provider: Miguel Fajardo Consulting Providers: Patience Sinha ; Neptali Hatfield Discharge Orders/Prescriptions Prescriptions: New pantoprazole [Protonix] 40 mg tablet,delayed release (DR/EC) 40 mg PO .before breakfast Qty: 30 1RF Continued hydrocodone-acetaminophen 5-325 mg Tablet 1 tab PO Q6H PRN PRN (Reason: Pain) 3 Days Qty: 10 0RF Referrals / Follow Up: Miguel Fajardo MD [Primary Care Provider] - Within 1 Week FriendLeroy DO [Med Staff - Active Staff] - Within 1 Week (with LFT in 5 DAYS or earlier if pain becomes severe)
--- NOTE | 2022-07-23 11:15 | DS.PCM_ITS ---
Providers Date of Admission: 07/21/22 Date of Discharge: 07/23/22 Primary Care Physician: Dr. Miguel Fajardo MD Consultations 07/21/22 20:13 Consult: Gastroenterology Routine Consulting Provider: [facility] Reason for Consult: Concern for retained stone EMERGENT Consult: No Notified: Yes Date Notified: 07/21/22 Time Notified: 19:52 Method of Notification: ED Physician Initiated 07/23/22 07:38 Consult: General Surgery Routine Consulting Provider: Neptali Hatfield Reason for Consult: GB fOSSA STONE after lap gelacio EMERGENT Consult: No Notified: Yes Date Notified: 07/22/22 Time Notified: 17:38 Method of Notification: Verbal Reason For Visit: RUQ PAIN Diagnosis Discharge Diagnosis (1) Abdominal pain: Status: Acute Code(s): R10.9 - Unspecified abdominal pain (2) History of cholecystectomy: Status: Acute Code(s): Z90.49 - Acquired absence of other specified parts of digestive tract Plan This is a 27-year-old female was admitted with recurrent right upper quadrant abdominal pain for about 2 and half weeks after she had laparoscopic cholecystectomy at [facility] by Dr. Fajardo. She had HIDA scan #Right upper quadrant pain: Patient had HIDA scan in [facility] and felt it might be a retained stone in CBD. But after that pain resolved for transient period, therefore was thought to have passed the stone. The pain came back associated with nausea but no vomiting.The patient had CT abdomen and right upper quadrant sonogram which raised the suspicion of calculi or hemorrhagic product. MRCP was ordered. Patient on pain control, antiemetic. On clinical lab and radiological assessment patient did not seem to be infected therefore antibiotic was not started yet.Patient does not have leukocytosis. Liver chemistry shows elevated ALT and alkaline phosphatase but normal AST. TB normal. GI consult reviewed. 07/23: MRCP was done and shows retained gallstone within GB fossa measuring up to 13.9 mm.The pain has improved. Liver chemistries shows mild increase in ALT AND AST and ALP TB and DB normal. Pain has improved Dr. Hatfield was consulted. He talked to patient's surgeon Dr. Zhou Fajardo in [place] and he thinks he completely remove the gallbladder with no spillage of bile or stone in the peritoneal cavity. Dr. Johnson thinks that the stone is in GB fossa and not connected with bile duct therefore no point in doing the HCP. Overall pain is improved therefore patient will be discharged. Advised follow-up liver chemistry in 5 days and follow-up with Dr. Johnson, surgeon Dr. Zhou Fajardo and PCP #DVT ppx: Low risk, ambulatory Laboratory Results 07/23/22 11:37: Sodium 139, Potassium 3.3 L, Chloride 108 H, Carbon Dioxide 25.0, Anion Gap 6, BUN 6 L, Creatinine 0.59, Estim Creat Clear Calc 126.60, Est GFR (MDRD) Af Amer 154, Est GFR (MDRD) Non-Af 127, BUN/Creatinine Ratio 10.1, Glucose 138 H, Calcium 8.9, Total Bilirubin 0.90, Direct Bilirubin 0.45 H, AST 73 H, ALT 196 H, Alkaline Phosphatase 182 H, Total Protein 6.9, Albumin 3.5, Globulin 3.4 Medications at Discharge Home Medications hydrocodone-acetaminophen 5-325mg 5mg-325mg 1 tab PO Q6H PRN PRN Pain 3 days #10 tabs 07/23/22 pantoprazole 40 mg tablet,delayed release (Protonix) 40 mg PO .before breakfast #30 tabs 07/23/22 Physical Exam Narrative Seen and examined. The pain is improved. Patient is still feels pain over the xiphisternum with radiation to right upper back. Liver chemistry improving. No fever. Physical exam General: Alert, Oriented x3, Cooperative HEENT: Atraumatic, PERRLA, EOMI, Normocephalic Oral: No Gingival or Mucosal Lesions/ Ulcerations Neck: Supple, No JVD, Negative Carotid Bruits Lungs: Air entry equal in bilateral lung bases. No crepitation/rhonchi Cardiovascular: Regular rate, Regular Rhythm, Normal S1, Normal S2, No murmurs Abdomen: Mild tenderness over Xiphisternum. No guarding/rigidity. No mass palpable. Nondistended. Bowel sounds present. : No renal angle tenderness. No suprapubic tenderness. Extremities: No edema, Capillary Refill Less than 3 Seconds Skin: No rashes, No breakdown Musculoskeletal: No Tenderness to Palpation of Joints or Extremities Neurological: Cranial nerves II-XII grossly intact, DTR 2+/4 and Symmetrical, Neuro grossly intact Psych/Mental Status: Normal Affect, Appropriate. Weight / BMI Weight Weight: 174 lb 9.698 oz Body Mass Index (BMI) 29.0 ABG / Lab / Microbiology Data Result Diagrams: 07/22/22 05:11 07/23/22 11:37 Radiography Diagnostic Testing: Radiology Impression MRCP 07/22/22 10:00 IMPRESSION: Status post cholecystectomy with fluid and findings concerning for retained gallstones within the gallbladder fossa. Intra and extrahepatic ductal dilatation. Electronically Signed: Shy Arteaga MD at 12:15 EST , D/C Instructions Discharge Diet: [place] diet, Soft diet (for next 5 days) and Low fat / Low cholesterol Call your doctor if you observe: Fever of 101 or Higher, Coldness, Increased Pain, Numbness or Tingling, Change in Color, Inability to urinate, Inability to have a bowel movement, Shortness of breath, Dizziness, Fainting spells, Swelling in the ankles, Chest pain, Prolonged hiccupping, Increased palpitations (irregular heartbeat), Calf discomfort and Uncontrolled pain Meaningful Use Info Meaningful Use Diagnoses (Choose all that apply): None applicable Discharge Plan Admission Admit Date/Time: 07/21/22 19:37 Primary Reason for Your Visit: RUQ pain Attending Provider: Biju Go Primary Care Provider: Miguel Fajardo Consulting Providers: Patience Sinha ; Neptali Hatfield Discharge Orders/Prescriptions Prescriptions: New pantoprazole [Protonix] 40 mg tablet,delayed release (DR/EC) 40 mg PO .before breakfast Qty: 30 1RF Continued hydrocodone-acetaminophen 5-325 mg Tablet 1 tab PO Q6H PRN PRN (Reason: Pain) 3 Days Qty: 10 0RF Referrals / Follow Up: Miguel Fajardo MD [Primary Care Provider] - Within 1 Week FriendLeroy DO [Med Staff - Active Staff] - Within 1 Week (with LFT in 5 DAY S or earlier if pain becomes severe) Disposition Disposition (needs filled in before D/C Order can be placed): Home, Self Care Charges/Coding Addendum Addendum: Patient pain has improved. It was found that patient is not operative condition either early laparoscopy or laparotomy by surgeon and Stone is not in CBD therefore ERCP not indicated. Patient is discharged. Patient was admitted as inpatient but was discharged because of sooner recovery than expected at time of admission. Visit Charges Inpatient E&M: 11983 Disch Hosp
[2022-07-23 12:26] LABS: AST(SGOT) 73 U/L (15-37); Alanine Aminotransfer ALT/SGPT 196 U/L (13-56); Albumin, Serum 3.5 g/dL (3.2-5.0); Alkaline Phosphatase 182 U/L (45-117); Anion Gap 6 (5-15); BUN 6 mg/dL (7-18); BUN/Creat Ratio 10.1 RATIO (10-20); Bilirubin, Direct 0.45 mg/dL (0.00-0.30); Calcium,Total 8.9 mg/dL (8.5-10.1); Chloride 108 mmol/L (98-107); Creatinine, Serum 0.59 mg/dL (0.55-1.02); EST Glomerular Filtration Rate 127 mL/min (>60); Est Glom Filt Rate - Afr Amer 154 mL/min (>60); Globulin 3.4 g/dL (2.2-4.2); Glucose 138 mg/dL (74-106); Potassium 3.3 mmol/L (3.5-5.1); Protein, Total 6.9 g/dL (6.4-8.2); Sodium Level 139 mmol/L (136-145)
[2022-07-23 13:40] VITALS: BP 111/70; PULSE 80; RESP 17; O2SAT 97
== END 2022-07-23 13:43 | disposition home or self-care (01) | DRG 392 ==
LOC: ED 19:27 → MS3 20:58
PROVIDERS: Admitting Provider Internal Medicine; Emergency Provider Emergency Medicine; PCP Orthopaedic Surgery; Visit Provider Internal Medicine
DX: R10.11 Right upper quadrant pain (principal); Z90.49 Acquired absence of other specified parts of digestive tract; Z98.890 Other specified postprocedural states
CPT/HCPCS: 36415; 74177; 74181; 76705; 80048; 80053; 80076; 83690; 85025; 99284; J7030; J7120; Q9967; A4216; J2405